=== PATIENT | female | born 1950 | race Caucasian/White ===

== ENCOUNTER 2019-04-08 01:43 | Outpatient (CLI) | payer MEDICARE, BC, SELFPAY ==
[2019-04-08 11:16] LABS: CREATININE 0.95 mg/dL (0.55-1.02); Estimated GFR 58.68 (mL/min/1.73m2)
[2019-04-08] MEDS: Omnipaque 350 MG/ML 100 ML BTL IJ (12:08)
--- NOTE | 2019-04-08 12:09 | DI.CT_ITS ---
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 TECHNIQUE: CT examination of the head was performed prior to and following intravenous infusion of 1 00 cc of Omnipaque 350. COMPARISON: No exams were available for comparison FINDINGS: There is no evidence of intracranial hemorrhage. Ventricular system is normal appearance. No mass les ion or enhancing lesion identified in the brain. The orbits appear normal with no abnormality of the globes, optic nerves, or extra ocular musculature. Retro bulbar fat appears intact. Optic chiasm appe ars normal as visualized. No pituitary mass or other suprasellar mass. The [place] vasculatu re appears normal with no evidence of aneurysm, dissection or stenosis. Temporal bone structures appe ar intact. Paranasal sinuses and mastoid air cells are clear. IMPRESSION: Negative cranial CT, pre and post contrast, with attention to the orbital and chiasmatic region.
== END 2019-04-08 02:03 ==
PROVIDERS: PCP Legal Medicine; Visit Provider Optometrist
DX: H47.299 Other optic atrophy, unspecified eye (principal); Z13.89 Encounter for screening for other disorder
CPT/HCPCS: 36415; 70470; 82565; J3490

== ENCOUNTER 2021-08-09 01:15 | Outpatient (CLI) | payer MEDICARE, BC, SELFPAY ==
[2021-08-09 11:12] LABS: Source Nasal/Nares
[2021-08-09 13:51] LABS: COVID-19 PCR Negative (Negative)
== END 2021-08-09 01:16 | disposition home or self-care (01) ==
LOC: LBO 01:15
PROVIDERS: PCP Family Medicine; Visit Provider Ophthalmology
DX: Z20.822 Contact with and (suspected) exposure to COVID-19 (principal); Z01.818 Encounter for other preprocedural examination
CPT/HCPCS: 87635

== ENCOUNTER 2021-08-12 06:42 | Day surgery (SDC) | payer MEDICARE, BC, SELFPAY ==
[2021-08-12] MEDS: Tropicam./Phenyleph. (1/2.5%) 5 ML BTL OD ×3 (07:05→07:20)
[2021-08-12 07:11] VITALS: BP 137/72; PULSE 63; RESP 16; TEMP 36.6; O2SAT 97
[2021-08-12] MEDS: Tetracaine 0.5% 4 ML BTL OD (07:33)
[2021-08-12] MEDS: Povidone-Iodine Ophth 30 ML BTL (07:34)
[2021-08-12] MEDS: Lidocaine 2% Jelly 6 ML SYR (07:34)
[2021-08-12 07:35] VITALS: BMI 37.7
--- NOTE | 2021-08-12 07:35 | W.ANESPRE ---
General Info Date of Service Date Performed: 08/12/21 Height: 5 ft 8 in Weight: 112.5 kg Body Mass Index (BMI): 37.7 Surgical Procedure: Operation Date: 08/12/21 07:40 Proposed Procedures Side Surgeon p Cataract Extraction with IOL Implant Right Edwin Ramirez MD Meds Allergies and Home Medications Allergies Allergy/AdvReac Type Severity Reaction Status Date / Time codeine Allergy Intermediate Skin Rash Unverified 08/12/21 07:10 latex Allergy Intermediate Skin Rash Unverified 08/12/21 07:10 meperidine [From Demerol] Allergy Intermediate Skin Rash Unverified 08/12/21 07:10 Home Medication Medication Instructions Recorded citalopram 20 mg PO BID 08/07/21 cyclobenzaprine 5 - 10 mg PO Q8H PRN 08/07/21 disopyramide phosphate 150 mg PO BID 08/07/21 eszopiclone 2 mg PO HS 08/07/21 folic acid 5 mg PO DAILY 08/07/21 gabapentin 600 mg PO TID 08/07/21 levothyroxine 150 mcg PO DAILY 08/07/21 methotrexate sodium 2.5 mg PO DIRECTED 08/07/21 metoprolol succinate 100 mg PO DAILY 08/07/21 morphine [MS Contin] 15 mg PO QAM 08/07/21 morphine [MS Contin] 30 mg PO BID 08/07/21 pantoprazole 40 mg PO HS 08/07/21 warfarin 3 mg PO DIRECTED 08/07/21 Current Visit Medications: Current Medications Generic Name Dose Route Start Last Admin Trade Name Freq PRN Reason Stop Dose Admin Acetaminophen 1,000 mg 08/12/21 06:00 Acetaminophen 500 Mg Tab PO Q4H PRN PRN Miscellaneous Medication 0 ml 08/12/21 06:00 Prednisolone 1%, Moxifloxacin 0.5%, Nepafenac 0.1% 5ml Btl OD DIRECTED [facility] Miscellaneous Medication 0 ml 08/12/21 06:00 08/12/21 07:20 Tropicam./Phenyleph. (1/2.5%) 5 Ml Btl OD 1 drp DIRECTED MARY Administration Tetracaine HCl 0 ml 08/12/21 06:00 Tetracaine 0.5% 4 Ml Btl OD DIRECTED [facility] PFSH Active Problems Active Problems: Problem Status Onset Code Nuclear sclerotic cataract of left eye H25.12 Posterior subcapsular age-related cataract of left eye H25.042 Medical History Medical History Arthritis Chronic pain Chronic venous insufficiency Constipation Corns and callosities DJD (degenerative joint disease) Essential hypertension, benign Fatigue Generalized abdominal pain Hx of syncope Hypothyroidism Insomnia Muscle weakness Obesity Primary hypercoagulable state Right shoulder pain Seronegative rheumatoid arthritis Spinal stenosis Unspecified lump in the right breast, lower outer quadrant Medical History Comments:: Sister has PONV; pt denies Surgical History Surgical History (Updated 08/12/21 @ 07:09 by Brea Chou) Hx of shoulder surgery right Hx of toe surgery right Hx of total hip arthroplasty left Hx of total knee replacement bilateral Tobacco Smoking/Tobacco Use Status: Never Alcohol Alcohol Intake: never Substance Use Substance use: Never Substance use type: does not use Vital Signs and Lab Results Vital Signs Most Recent Vital Signs in EMR: Most Recent Vital Signs Temp Pulse Resp BP Pulse Ox 36.6 C 63 16 137/72 97 08/12/21 07:11 08/12/21 07:11 08/12/21 07:11 08/12/21 07:11 08/12/21 07:11 Lab Results Blood Type / Crossmatch: No Data to Display Complete Blood Count: No Data to Display Complete Metabolic Panel: No Data to Display Liver Function Panel: No Data to Display Coagulation Panel: No Data to Display Cardiac Panel: No Data to Display Arterial Blood Gas: No Data to Display Venous Blood Gas: No Data to Display Pancreas Panel: No Data to Display Thyroid Panel: No Data to Display Infectious Disease: Coronavirus (COVID-19)(PCR) Negative (Negative) 08/09/21 09:49 08/09/21 Coronavirus 2019 Source Nasal/Nares 08/09/21 09:49 08/09/21 Blood Cultures: No Data to Display Toxicology Panel: No Data to Display Anesthesia Assessment and Plan Anesthesia History Personal History: No History of Anesthesia Complications Family History: No Family History of Anesthesia Complications Exercise Tolerance Exercise Tolerance: Metabolic Equivalents>4 Pertinent Negatives Pertinent Negatives: No Symptoms of GERD, No Major Cardiovascular Symptoms or Complaints, No Major Pulmonary Symptoms or Complaints and No History of CVA/TIA Cardiac & Pulmonary Exam Cardiac Exam: Normal S1/S2 Heart Sounds Pulmonary Exam: Clear Bilateral Breath Sounds Implantable Cardiac Device Does patient have a Pacemaker or an ICD?: No Airway Exam Known Difficult Airway: No Mallampati Class: 1 Mouth Opening: Normal (> 3cm) Thyromental Distance: Greater than 3 cm Neck Range of Motion: Full ROM Neck Circumference: Thick Teeth Condition: Normal Dentition ASA Classification ASA Score: ASA 2 Emergency Case?: No NPO Status NPO Status: NPO Clears >2 hours, Solids >8 hours Anesthesia Plan Resuscitation Status: Full Code Anesthesia Technique: MAC Anesthesia Airway Planned: Natural Airway Monitors Used: Standard Monitors
[2021-08-12] MEDS: Balanced Salt Soln.-PLUS 500 ML BAG (07:46)
[2021-08-12] MEDS: Duovisc Viscoelastic System EACH 1 EACH (07:47)
--- NOTE | 2021-08-12 08:02 | W.PM.DSUDISC ---
Discharge Plan Disposition Patient Disposition: HOME Condition: Good Discharge Details Attending Provider: Edwin Ramirez Primary Care Provider: Shaneka Cortez [place] Meds and New Rx's Prescriptions: No Action gabapentin 600 mg tablet 600 mg PO TID RF: 0 citalopram 40 mg tablet 20 mg PO BID RF: 0 metoprolol succinate 100 mg tablet extended release 24 hr 100 mg PO DAILY RF: 0 disopyramide phosphate 100 mg capsule 150 mg PO BID RF: 0 morphine [MS Contin] 30 mg tablet extended release 30 mg PO BID RF: 0 warfarin 3 mg tablet 3 mg PO DIRECTED RF: 0 methotrexate sodium 2.5 mg tablet 2.5 mg PO DIRECTED RF: 0 levothyroxine 150 mcg tablet 150 mcg PO DAILY RF: 0 folic acid 1 mg tablet 5 mg PO DAILY RF: 0 morphine [MS Contin] 15 mg tablet extended release 15 mg PO QAM RF: 0 cyclobenzaprine 5 mg tablet 5 - 10 mg PO Q8H PRNRF: 0 eszopiclone 2 mg tablet 2 mg PO HS RF: 0 pantoprazole [address] For Susp In Packet 40 mg PO HS RF: 0 Discharge Instructions Stand Alone Forms: Post-op Topical Cataract, Helena Peñaloza (DSU) Discharge Orders Discharge Orders: Discharge Order (Routine); Ordered 08/12/21 Ordered By: Edwin Ramirez DS: Diagnosis Discharge Diagnosis (1) Nuclear sclerotic cataract of right eye: Status: Resolved (2) Posterior subcapsular age-related cataract, right eye: Status: Resolved
--- NOTE | 2021-08-12 08:03 | ROE_ITS ---
Date of service: 08/12/21 Time of Service: 08:03 Operative Note Operative Note DATE OF PROCEDURE: 08/12/21 PRE-OP DIAGNOSIS: Nuclear/posterior subcapsular cataract, right eye POST-OP DIAGNOSIS: same PROCEDURE: Cataract extraction using phacoemulsification with intraocular lens implant, right eye SURGEON: Edwin Ramirez ANESTHESIA TYPE: Local By Surgeon and MAC Refer to Anesthesia Record ESTIMATED BLOOD LOSS: 0 PATHOLOGY: none sent COMPLICATIONS: None Patient was transported to: same day Patient's condition: stable Implants: Ghulam Clareon [id number] Indications: Progressive decreased vision due to cataract, right eye Procedure Description: CATARACT SURGERY OPERATIVE REPORT PREOPERATIVE DIAGNOSIS: Nuclear/posterior subcapsular cataract, right eye POSTOPERATIVE DIAGNOSIS: Same OPERATION: Cataract extraction using phacoemulsification with posterior chamber intraocular lens implant, right eye. IOL: IOL Diagnostic Radiologist/Model: Ghulam Clareon [id number] IOL Power: + 19.0 diopters IOL Serial Number: [id number] Optic Diameter: 6.0mm Haptic/Overall Diameter: 13.0mm PHACO INFO: Ghulam Face to Face Liveurion Vision System with OZil and Active Fluidics Cumulative Dispersed Energy (CDE): 7.69 seconds SURGEON: Edwin Ramirez MD, JESSICA ANESTHESIA: Monitored Anesthesia Care (MAC), with local sub-tenon's anesthetic infiltration COMPLICATIONS: None SPECIMENS: None INDICATIONS FOR PROCEDURE: The patient is a 70-year-old lady with history of diminished visual acuity in her right eyes secondary to the development of nuclear and posterior subcapsular cataract. The option of cataract surgery was offered to the patient and she felt she was symptomatic enough that she wished to proceed. PROCEDURE: The correct surgical eye was identified and marked as the right eye and the pupil was dilated in the preoperative area using mydriatics and cycloplegics. The dilated pupil size was 6.5 mm. She elected to proceed without oral sedation.. The patient was brought to the operating room where cardiopulmonary monitoring was instituted and surgical time-out was performed, confirming the correct operative eye and IOL power. Topical anesthesia was administered and ophthalmic povidone-iodine 5% was instilled into the conjunctival fornices. Lidocaine gel was applied to the cornea and the april-ocular area was prepped with Betadine 10% solution and draped in the usual sterile fashion for intraocular surgery, including an aperture drape. A Tegaderm transparent film dressing was cut in half and used to cover the lashes and lid margins. Care was taken to sequester the lashes and lid margins under the Tegaderm dressing. A lid speculum was placed between the lids of the operative eye and the Eulogio-Duc operating microscope was maneuvered into position. Michelle scissors were then used to make a conjunctival buttonhole approximately 6mm posterior to the limbus in the inferonasal quadrant. Blunt dissection was carried out to expose bare sclera, and a blunt-tipped sub-tenon?s anesthesia cannula was introduced and passed posteriorly along the globe where non- preserved plain lidocaine was injected into posterior sub-Tenon?s space. A sideport knife was used to make a paracentesis port inferiortemporally. In traocular phenylephrine/lidocaine was injected into the anterior chamber. The anterior chamber was then filled with viscoelastic. A 2.4mm keratome knife was used to create a half-thickness groove at the limbus and then to construct a three-plane near-clear corneal tunnel extending 2.0mm into clear cornea in the superiortemporal position. . A flap was raised on the anterior capsule and capsulorhexis forceps were used to complete a continuous curvilinear capsulorhexis of 5.0 mm. Balanced salt solution was then used to perform cortical cleaving hydrodissection and nuclear hydrodelineation until the lens could be freely rotated within the capsular bag. The lens nucleus was then disassembled and removed within the capsular bag and iris plane using phacoemulsification. Residual cortical material was removed using the I/A handpiece. The posterior capsule was carefully polished to remove as much residual lens epithelial cells as safely possible. The capsular bag was then inflated and the anterior chamber deepened with viscoelastic. The lens implant described above was inserted into the capsular bag using the Ghulam Autonome Injector. A Kuglen hook was used to dial the IOL into position. Residual viscoelastic was then removed first from posterior to the IOL, then from the anterior chamber using the I/A handpiece. The lens implant was noted to center nicely within the capsular bag. The incisions were stromally hydrated, and the anterior chamber was reformed using BSS. Then 0.5cc of moxifloxacin 1.0mg/ml were injected into the capsular bag and anterior chamber. The incisio ns were checked with a Weck spear and found to be secure. Several drops of ophthalmic povidone-iodine 5% were then applied to the eye followed by two drops of Imprimis combination prednisolone/moxifloxacin/nepafenac solution. The drapes were removed and a clear plastic protective eye shield was placed over the eye. The patient was then returned to Same Day Surgery in stable condition.
--- NOTE | 2021-08-12 08:03 | W.ANESPOSTOP ---
Postoperative Evaluation Date, Time and Location Date Performed: 08/12/21 Time Performed: 08:03 Patient Location: Day Surgery Unit Vital Signs Most Recent Imported Vital Signs: Most Recent Vital Signs Temp Pulse Resp BP Pulse Ox 36.6 C 63 16 137/72 97 08/12/21 07:11 08/12/21 07:11 08/12/21 07:11 08/12/21 07:11 08/12/21 07:11 Most Recent Manually Entered Vital Signs: Adult Blood Pressure: 129/78 Heart Rate: 57 Respirations: 10 Oxygen Saturation (%): 98 Temperature (C): 36.3 C Pain Score (0-10 Scale): 0 Pain Score Most Recent Pain Score: Most Recent Pain Score Pain Level 6 08/12/21 07:11 Assessment Mental Status: Awake (Alert & Oriented to Patient Baseline) Airway and Respiratory Function: Patent airway with normal (patient baseline) respiratory exam Cardiovascular Function: Hemodynamically Stable Hydration Status: Adequately Hydrated Nausea & Vomiting: No Nausea or Vomiting Pain: Pt. Denies Any Pain Peripheral Nerve Block: Patient did not receive a nerve block
[2021-08-12 08:04] VITALS: BP 129/78; PULSE 57; RESP 10; RESP 16; TEMP 36.6; TEMPC 36.3; O2SAT 98
== END 2021-08-12 08:21 | disposition home or self-care (01) ==
PROVIDERS: PCP Family Medicine; Visit Provider Ophthalmology
PROC: (CPT 66984; principal; 2021-08-12 07:30)
DX: H25.041 Posterior subcapsular polar age-related cataract, right eye (principal); D68.59 Other primary thrombophilia; E03.9 Hypothyroidism, unspecified; I87.2 Venous insufficiency (chronic) (peripheral); I10 Essential (primary) hypertension; Z79.01 Long term (current) use of anticoagulants
CPT/HCPCS: 66984; V2632

== ENCOUNTER 2021-08-23 01:03 | Outpatient (CLI) | payer MEDICARE, BC, SELFPAY ==
[2021-08-23 17:02] LABS: Source Nasal/Nares
[2021-08-23 21:03] LABS: COVID-19 PCR Negative (Negative)
== END 2021-08-23 01:04 | disposition home or self-care (01) ==
LOC: LBO 01:04
PROVIDERS: PCP Family Medicine; Visit Provider Ophthalmology
DX: Z20.822 Contact with and (suspected) exposure to COVID-19 (principal)
CPT/HCPCS: 87635; U0003; U0005

== ENCOUNTER 2021-08-26 12:38 | Day surgery (SDC) | payer MEDICARE, BC, SELFPAY ==
--- NOTE | 2021-08-26 06:54 | HPE_ITS ---
Assessment and Plan Assessment and plan (1) Nuclear sclerotic cataract of left eye: Status: Acute Assessment and plan: Assessment: Visually significant cataract of the left eye. Plan: Cataract extraction with lens implantation of the left eye. (2) Posterior subcapsular age-related cataract of left eye: Status: Acute Assessment and plan: Assessment: Visually significant cataract of the left eye. Plan: Cataract extraction with lens implantation of the left eye. History of Present Illness History of Present Illness Chief Complaint: Progressive decreased vision, left eye Narrative: The patient is a 70-year-old lady with history of progressive decreased vision in both eyes. She notes significant difficulty reading fine print with and without glasses. She has trouble seeing at night and reading words on t elevision. On examination she was noted to have significant bilateral nuclear and posterior subcapsular cataract with visual acuity of 20/70 OD, 20/50 OS. She underwent cataract surgery in the right eye on 08/12/2021 and is doing well postoperatively. She now presents for cataract surgery of the left eye. Review of Systems All systems reviewed & are unremarkable except as noted in HPI and below PFSH All Active Problems Nuclear sclerotic cataract of left eye (Acute) Posterior subcapsular age-related cataract of left eye (Acute) Medical History Arthritis Chronic pain Chronic venous insufficiency Constipation Corns and callosities DJD (degenerative joint disease) Essential hypertension, benign Fatigue Generalized abdominal pain Hx of syncope Hypothyroidism Insomnia Muscle weakness Obesity Primary hypercoagulable state Right shoulder pain Seronegative rheumatoid arthritis Spinal stenosis Unspecified lump in the right breast, lower outer quadrant Surgical History (Updated 08/26/21 @ 12:50 by Brea Chou) Hx of cataract surgery Hx of shoulder surgery right Hx of toe surgery right Hx of total hip arthroplasty left Hx of total knee replacement bilateral Social History Smoking/Tobacco Use Status: Never Smoking risk assessment performed?: Yes Alcohol Intake: never Drug use: Never Substance use type: does not use Do you feel safe at home: Yes Do you feel safe in your relationship?: Yes Meds Allergies and Home Medications Allergies Allergy/AdvReac Type Severity Reaction Status Date / Time codeine Allergy Intermediate Skin Rash Unverified 08/26/21 12:50 latex Allergy Intermediate Skin Rash Unverified 08/26/21 12:50 meperidine [From Demerol] Allergy Intermediate Skin Rash Unverified 08/26/21 12:50 Home Medications Medication Instructions Recorded Confirmed Type citalopram 40 mg tablet 20 mg PO BID 08/07/21 08/23/21 History cyclobenzaprine 5 mg tablet 5 - 10 mg PO Q8H PRN 08/07/21 08/23/21 History disopyramide phosphate 100 mg 150 mg PO BID 08/07/21 08/23/21 History capsule eszopiclone 2 mg tablet 2 mg PO HS 08/07/21 08/23/21 History folic acid 1 mg tablet 5 mg PO DAILY 08/07/21 08/23/21 History gabapentin 600 mg tablet 600 mg PO TID 08/07/21 08/23/21 History levothyroxine 150 mcg tablet 150 mcg PO DAILY 08/07/21 08/23/21 History methotrexate sodium 2.5 mg tablet 2.5 mg PO DIRECTED 08/07/21 08/23/21 History metoprolol succinate 100 mg 100 mg PO DAILY 08/07/21 08/23/21 History tablet,extended release 24 hr morphine 15 mg tablet,extended 15 mg PO QAM 08/07/21 08/23/21 History release (MS Contin) morphine 30 mg tablet,extended 30 mg PO BID 08/07/21 08/23/21 History release (MS Contin) warfarin 3 mg tablet 3 mg PO DIRECTED 08/07/21 08/23/21 History Exam Eyes Other: Uncorrected visual acuity measures 20/20 right eye, 20/30 left eye. Intraocular pressure is 9 in each eye. Extraocular toady is normal. There is a well- positioned PCIOL in the right eye with clear posterior capsule. The left eye shows moderate nuclear and posterior subcapsular cataract. Disc cupping is 0.25 OD, 0.15 OS. The vessels, macula, peripheral retina and vitreous are normal OU. Resp Auscultation: clear to auscultation bilaterally Cardio Rate: regular rate Rhythm: regular rhythm
[2021-08-26] MEDS: Tropicam./Phenyleph. (1/2.5%) 5 ML BTL OS ×3 (13:01→13:14)
[2021-08-26 13:02] VITALS: BP 148/82; PULSE 60; RESP 16; TEMP 36.4; O2SAT 96
--- NOTE | 2021-08-26 13:41 | W.ANESPRE ---
General Info Date of Service Date Performed: 08/26/21 Height: 5 ft 8 in Weight: 110.8 kg Body Mass Index (BMI): 37.1 Surgical Procedure: Operation Date: 08/26/21 16:40 Proposed Procedure Side Surgeon p Cataract Extraction with IOL Implant Left Edwin Ramirez MD Actual Procedure Side Surgeon p Cataract Extraction with IOL Implant Left Edwin Ramirez MD Pre-Op Diagnosis Post-Op Diagnosis CATARACT LEFT EYE CATARACT LEFT EYE Meds Allergies and Home Medications Allergies Allergy/AdvReac Type Severity Reaction Status Date / Time codeine Allergy Intermediate Skin Rash Unverified 08/26/21 12:50 latex Allergy Intermediate Skin Rash Unverified 08/26/21 12:50 meperidine [From Demerol] Allergy Intermediate Skin Rash Unverified 08/26/21 12:50 Home Medication Medication Instructions Recorded citalopram 40 mg tablet 20 mg PO BID 08/07/21 cyclobenzaprine 5 mg tablet 5 - 10 mg PO Q8H PRN 08/07/21 disopyramide phosphate 100 mg 150 mg PO BID 08/07/21 capsule eszopiclone 2 mg tablet 2 mg PO HS 08/07/21 folic acid 1 mg tablet 5 mg PO DAILY 08/07/21 gabapentin 600 mg tablet 600 mg PO TID 08/07/21 levothyroxine 150 mcg tablet 150 mcg PO DAILY 08/07/21 methotrexate sodium 2.5 mg tablet 2.5 mg PO DIRECTED 08/07/21 metoprolol succinate 100 mg 100 mg PO DAILY 08/07/21 tablet,extended release 24 hr morphine 15 mg tablet,extended 15 mg PO QAM 08/07/21 release (MS Contin) morphine 30 mg tablet,extended 30 mg PO BID 08/07/21 release (MS Contin) warfarin 3 mg tablet 3 mg PO DIRECTED 08/07/21 Current Visit Medications: Current Medications Generic Name Dose Route Start Last Admin Trade Name Freq PRN Reason Stop Dose Admin Acetaminophen 1,000 mg 08/26/21 06:00 Acetaminophen 500 Mg Tab PO Q4H PRN PRN Miscellaneous Medication 0 ml 08/26/21 06:00 Prednisolone 1%, Moxifloxacin 0.5%, Nepafenac 0.1% 5ml Btl OS DIRECTED MARY Miscellaneous Medication 0 ml 08/26/21 06:00 08/26/21 13:14 Tropicam./Phenyleph. (1/2.5%) 5 Ml Btl OS 1 drp DIRECTED MARY Administration Tetracaine HCl 0 ml 08/26/21 06:00 Tetracaine 0.5% 4 Ml Btl OS DIRECTED MARY PFSH Active Problems Active Problems: Problem Status Onset Code Nuclear sclerotic cataract of left eye H25.12 Posterior subcapsular age-related cataract of left eye H25.042 Nuclear sclerotic cataract of right eye H25.11 Posterior subcapsular age-related cataract, right eye H25.041 Medical History Medical History Arthritis Chronic pain Chronic venous insufficiency Constipation Corns and callosities DJD (degenerative joint disease) Essential hypertension, benign Fatigue Generalized abdominal pain Hx of syncope Hypothyroidism Insomnia Muscle weakness Obesity Primary hypercoagulable state Right shoulder pain Seronegative rheumatoid arthritis Spinal stenosis Unspecified lump in the right breast, lower outer quadrant Medical History Comments:: Sister has PONV; pt denies Surgical History Surgical History (Updated 08/26/21 @ 12:50 by Brea Chou) Hx of cataract surgery Hx of shoulder surgery right Hx of toe surgery right Hx of total hip arthroplasty left Hx of total knee replacement bilateral Tobacco Smoking/Tobacco Use Status: Never Alcohol Alcohol Intake: never Substance Use Substance use: Never Substance use type: does not use Vital Signs and Lab Results Vital Signs Most Recent Vital Signs in EMR: Most Recent Vital Signs Temp Pulse Resp BP Pulse Ox 36.4 C L 60 16 148/82 H 96 08/26/21 13:02 08/26/21 13:02 08/26/21 13:02 08/26/21 13:02 08/26/21 13:02 Lab Results Blood Type / Crossmatch: No Data to Display Complete Blood Count: No Data to Display Complete Metabolic Panel: No Data to Display Liver Function Panel: No Data to Display Coagulation Panel: No Data to Display Cardiac Panel: No Data to Display Arterial Blood Gas: No Data to Display Venous Blood Gas: No Data to Display Pancreas Panel: No Data to Display Thyroid Panel: No Data to Display Infectious Disease: Coronavirus (COVID-19)(PCR) Negative (Negative) 08/23/21 09:44 08/23/21 Coronavirus 2019 Source Nasal/Nares 08/23/21 09:44 08/23/21 Blood Cultures: No Data to Display Toxicology Panel: No Data to Display Anesthesia Assessment and Plan Anesthesia History Personal History: No History of Anesthesia Complications Family History: No Family History of Anesthesia Complications Exercise Tolerance Exercise Tolerance: Metabolic Equivalents>4 Pertinent Negatives Pertinent Negatives: No Symptoms of GERD Cardiac & Pulmonary Exam Cardiac Exam: Normal S1/S2 Heart Sounds Pulmonary Exam: Clear Bilateral Breath Sounds Implantable Cardiac Device Does patient have a Pacemaker or an ICD?: No Airway Exam Known Difficult Airway: No Mallampati Class: 1 Mouth Opening: Normal (> 3cm) Thyromental Distance: Greater than 3 cm Neck Range of Motion: Full ROM Neck Circumference: Thick Teeth Condition: Normal Dentition ASA Classification ASA Score: ASA 2 Emergency Case?: No NPO Status NPO Status: NPO Clears >2 hours, Solids >8 hours Anesthesia Plan Resuscitation Status: Full Code Anesthesia Technique: MAC Anesthesia Airway Planned: Natural Airway Monitors Used: Standard Monitors
[2021-08-26 13:48] VITALS: BMI 37.1
[2021-08-26] MEDS: Lidocaine 2% Jelly 6 ML SYR (14:04)
[2021-08-26] MEDS: Tetracaine 0.5% 4 ML BTL OS (14:04)
[2021-08-26] MEDS: Povidone-Iodine Ophth 30 ML BTL (14:04)
[2021-08-26] MEDS: Balanced Salt Soln.-PLUS 500 ML BAG (14:12)
[2021-08-26] MEDS: Duovisc Viscoelastic System EACH 1 EACH (14:12)
[2021-08-26 14:32] VITALS: BP 116/74; PULSE 58; RESP 16; TEMP 36.3; O2SAT 100
--- NOTE | 2021-08-26 14:35 | W.PM.DSUDISC ---
Discharge Plan Disposition Patient Disposition: HOME Condition: Good Discharge Details Attending Provider: Edwin Ramirez Primary Care Provider: Shaneka Cortez Home Meds and New Rx's Prescriptions: No Action gabapentin 600 mg tablet 600 mg PO TID 0RF Label Comments: take 1 tablet by mouth three times a day FOR NEUROPATHIC PAIN citalopram 40 mg tablet 20 mg PO BID 0RF Label Comments: take 1/2 tablet by mouth twice a day metoprolol succinate 100 mg tablet extended release 24 hr 100 mg PO DAILY 0RF Label Comments: take 1 tablet by mouth once daily disopyramide phosphate 100 mg capsule 150 mg PO BID 0RF Label Comments: take 1 capsule by mouth three times a day morphine [MS Contin] 30 mg tablet extended release 30 mg PO BID 0RF Label Comments: Take 1 tablet by mouth twice a day for chronic pain warfarin 3 mg tablet 3 mg PO DIRECTED 0RF Label Comments: take 1 tablet by mouth once daily AND 1/2 TABLET ON DAYS MON,WED,FRI methotrexate sodium 2.5 mg tablet 2.5 mg PO DIRECTED 0RF Label Comments: TAKE 6 TABLETS BY MOUTH ONCE A WEEK FOR 28 DAYS. levothyroxine 150 mcg tablet 150 mcg PO DAILY 0RF Label Comments: take 1 tablet by mouth every morning ON AN EMPTY STOMACH FOR HYPOTHYROIDISM folic acid 1 mg tablet 5 mg PO DAILY 0RF Label Comments: take 5 tablets by mouth daily morphine [MS Contin] 15 mg tablet extended release 15 mg PO QAM 0RF Label Comments: Take 1 tablet by mouth every morning for chronic pain cyclobenzaprine 5 mg tablet 5 - 10 mg PO Q8H PRN0RF Label Comments: TAKE 1 TO 2 TABLETS EVERY 8 HOURS NEEDED FOR MUSCLE SPASM eszopiclone 2 mg tablet 2 mg PO HS 0RF Discharge Instructions Stand Alone Forms: Post-op Topical Cataract[place] ([facility]U) Discharge Orders Discharge Orders: Discharge Order (Routine); Ordered 08/26/21 Ordered By: Edwin Ramirez DS: Diagnosis Discharge Diagnosis (1) Nuclear sclerotic cataract of left eye: Status: Resolved (2) Posterior subcapsular age-related cataract of left eye: Status: Resolved
--- NOTE | 2021-08-26 14:36 | W.PM.OP ---
Date of service: 08/26/21 Time of Service: 14:36 Operative Note Operative Note DATE OF PROCEDURE: 08/26/21 PRE-OP DIAGNOSIS: Nuclear/posterior subcapsular cataract, left eye POST-OP DIAGNOSIS: same PROCEDURE: Cataract extraction using phacoemulsification with intraocular lens implant, left eye SURGEON: Edwin Ramirez ANESTHESIA TYPE: Local By Surgeon and MAC Refer to Anesthesia Record PATHOLOGY: none sent COMPLICATIONS: None Patient was transported to: same day Patient's condition: stable Implants: Ghulam Clareon [id number] Indications: Progressive decreased vision due to cataract, left eye Procedure Description: CATARACT SURGERY OPERATIVE REPORT PREOPERATIVE DIAGNOSIS: Nuclear/posterior subcapsular cataract, left eye POSTOPERATIVE DIAGNOSIS: Same OPERATION: Cataract extraction using phacoemulsification with posterior chamber intraocular lens implant, left eye. IOL: IOL Nutrition Instructor/Model: Ghulam Clareon [id number] IOL Power: + 19.0 diopters IOL Serial Number: [id number] Optic Diameter: 6.0mm Haptic/Overall Diameter: 13.0mm PHACO INFO: Ghulam[employer]Asset Intelligenceurion Vision System with OZil and Active Fluidics Cumulative Dispersed Energy (CDE): 6.73 seconds SURGEON: Edwin Ramirez MD, JESSICA ANESTHESIA: Monitored Anesthesia Care (MAC), with local sub-tenon's anesthetic infiltration COMPLICATIONS: None SPECIMENS: None INDICATIONS FOR PROCEDURE: The patient is a 71-year-old lady with history of diminished visual acuity in both eyes secondary to the development of bilateral cataract. She was noted to have nuclear and posterior subcapsular cataract OU. She has already undergone cataract surgery in the right eye and is doing well postoperatively. She now presents for cataract surgery in the left eye. PROCEDURE: The correct surgical eye was identified and marked as the left eye and the pupil was dilated in the preoperative area using mydriatics and cycloplegics. The dilated pupil size was 7.0 mm. She elected to proceed without oral sedation.. The patient was brought to the operating room where cardiopulmonary monitoring was instituted and surgical time-out was performed, confirming the correct operative eye and IOL power. Topical anesthesia was administered and ophthalmic povidone-iodine 5% was instilled into the conjunctival fornices. Lidocaine gel was applied to the cornea and the april-ocular area was prepped with Betadine 10% solution and draped in the usual sterile fashion for intraocular surgery, including an aperture drape. A Tegaderm transparent film dressing was cut in half and used to cover the lashes and lid margins. Care was taken to sequester the lashes and lid margins under the Tegaderm dressing. A lid speculum was placed between the lids of the operative eye and the Ghulam LuxOR Revalia operating microscope was maneuvered into position. Michelle scissors were then used to make a conjunctival buttonhole approximately 6mm posterior to the limbus in the inferonasal quadrant. Blunt dissection was carried out to expose bare sclera, and a blunt-tipped sub-tenon?s anesthesia cannula was introduced and passed posteriorly along the globe where non-preserved plain lidocaine was injected into posterior sub-Tenon?s space. A sideport knife was used to make a paracentesis port superior/superiortemporally. Intraocular phenylephrine/lidocaine was injected into the anterior chamber. The anterior chamber was then filled with viscoelastic. A 2.4mm keratome knife was used to create a half-thickness groove at the limbus and then to construct a three-plane near-clear corneal tunnel extending 2.0mm into clear cornea in the temporal position. . A flap was raised on the anterior capsule and capsulorhexis forceps were used to complete a continuous curvilinear capsulorhexis of 5.0 mm. Balanced salt solution was then used to perform cortical cleaving hydrodissection and nuclear hydrodelineation until the lens could be freely rotated within the capsular bag. The lens nucleus was then disassembled and removed within the capsular bag and iris plane using phacoemulsification. Residual cortical material was removed using the 45-degree angled silicone I/A tip with 0.3mm port. The posterior capsule was carefully polished to remove as much residual lens epithelial cells as safely possible. The capsular bag was then inflated and the anterior chamber deepened with viscoelastic. The lens implant described above was inserted into the capsular bag using the Ghulam Autonome Injector. A Kuglen hook was used to dial the IOL into position. Residual viscoelastic was then removed first from posterior to the IOL, then from the anterior chamber using the I/A handpiece. The lens implant was noted to center nicely within the capsular bag. The incisions were stromally hydrated, and the anterior chamber was reformed using BSS. Then 0.5cc of moxifloxacin 1.0mg/ml were injected into the capsular bag and anterior chamber. The incisions were checked with a Weck spear and found to be secure. Several drops of ophthalmic povidone-iodine 5% were then applied to the eye followed by two drops of Imprimis combination prednisolone/moxifloxacin/nepafenac solution. The drapes were removed and a clear plastic protective eye shield was placed over the eye. The patient was then returned to [facility] Day Surgery in stable condition.
--- NOTE | 2021-08-26 14:41 | W.ANESPOSTOP ---
Postoperative Evaluation Date, Time and Location Date Performed: 08/26/21 Time Performed: 14:41 Patient Location: Day Surgery Unit Vital Signs Most Recent Imported Vital Signs: Most Recent Vital Signs Temp Pulse Resp BP Pulse Ox 36.3 C L 58 L 16 116/74 100 08/26/21 14:32 08/26/21 14:32 08/26/21 14:32 08/26/21 14:32 08/26/21 14:32 Pain Score Most Recent Pain Score: Most Recent Pain Score Pain Level 0 08/26/21 14:32 Assessment Mental Status: Awake (Alert & Oriented to Patient Baseline) Airway and Respiratory Function: Patent airway with normal (patient baseline) respiratory exam Cardiovascular Function: Hemodynamically Stable Hydration Status: Adequately Hydrated Nausea & Vomiting: No Nausea or Vomiting Pain: Pt. Denies Any Pain Peripheral Nerve Block: Patient did not receive a nerve block
== END 2021-08-26 14:52 | disposition home or self-care (01) ==
PROVIDERS: PCP Family Medicine; Visit Provider Ophthalmology
PROC: (CPT 66984; principal; 2021-08-26 16:30)
DX: H25.042 Posterior subcapsular polar age-related cataract, left eye (principal); I10 Essential (primary) hypertension; D68.59 Other primary thrombophilia
CPT/HCPCS: 66984; V2632